=== PATIENT | female | born 1960 | race Caucasian/White ===

== ENCOUNTER 2020-01-25 19:05 | Emergency (ER) | payer BC ==
[~2020-01-25] VITALS: Ht 175.3 cm; Wt 104.3 kg
[2020-01-25 21:16] LABS: Urine Bacteria NONE SEEN /hpf (None Seen); Urine Blood Negative /uL (Negative); Urine Specific Gravity 1.009 (1.001-1.035); Urine WBC <1 /hpf (0 - 5)
[2020-01-25 21:32] LABS: Alcohol, Urine < 3.0 mg/dL (0-10); Amphetamine Screen, Urine NEGATIVE (NEGATIVE); Barbiturate Scree,Urine NEGATIVE (NEGATIVE); Benzodiazephine Screen, Urine POSITIVE (NEGATIVE); Cannabinoid Screen, Urine POSITIVE (NEGATIVE); Cocaine Screen, Urine NEGATIVE (NEGATIVE); Opiate Scree,Urine NEGATIVE (NEGATIVE); Phencyclidine Screen, Urine NEGATIVE (NEGATIVE)
[2020-01-25 22:10] LABS: Basophils # (auto) 0.1 10 ^3/uL (0-0.2); Basophils % (auto) 1.3 % (0.0-2.0); Eosinophils # (auto) 0.3 10 ^3/uL (0-0.8); Eosinophils % (auto) 2.8 % (0.0-7.0); Hematocrit 39.4 % (36.0-46.0); Lymphocytes # (auto) 3.4 10 ^3/uL (0.4-5.4); Lymphocytes % (auto) 30.5 % (10.0-50.0); Mean Corpuscular Hemoglobin 30.5 pg (28.0-32.0); Mean Corpuscular Hgb Conc. 32.9 g/dL (32.0-36.0); Mean Corpuscular Volume 92.6 fL (80.0-100.0); Monocytes % (auto) 9.1 % (0.0-12.0); Neutrophils # (auto) 6.2 10 ^3/uL (1.6-8.6); Neutrophils % (auto) 56.3 % (37.0-80.0); Platelet Count (auto) 284 10^3/uL (140-450); Red Blood Cells 4.25 10^6/uL (4.0-5.20); Red Cell Distribution Width 14.6 % (11.8-14.3)
[2020-01-25 22:27] LABS: Albumin 3.7 g/dL (3.4-5.0); Anion Gap 4 (5-15); Blood Urea Nitrogen 9 mg/dL (7-18); Calcium 8.8 mg/dL (8.5-10.1); Carbon Dioxide 29 mmol/L (21-32); Chloride 108 mmol/L (98-107); Glucose 98 mg/dL (74-106); Magnesium 2.6 mg/dL (1.6-2.6); Sodium 141 mmol/L (136-145)
[2020-01-25 22:33] LABS: Alanine Aminotransferase 17 U/L (13-56); Alkaline Phosphatase 82 U/L (45-117); Aspartate Aminotransferase 12 U/L (15-37); BUN/Creatinine Ratio 10.7; Bilirubin, Total 0.4 mg/dL (0.2-1.0); GFR African American 90 mL/min; GFR Non-African American 74 mL/min; Total Protein 7.2 g/dL (6.4-8.2)
[2020-01-25] MEDS ORDERED: ACETAMINOPHEN/CODEINE#3 (300/30mg) TAB PO ONE (23:00)
[2020-01-26 00:25] VITALS: BP 127/49
== END 2020-01-26 00:35 | disposition home or self-care (01) ==
LOC: ER 19:12
DX: M79.662 Pain in left lower leg (principal); M79.661 Pain in right lower leg; R60.0 Localized edema; R79.89 Other specified abnormal findings of blood chemistry; E78.5 Hyperlipidemia, unspecified; I10 Essential (primary) hypertension; F17.210 Nicotine dependence, cigarettes, uncomplicated
CPT/HCPCS: 36415; 71045; 80053; 80307; 81001; 83735; 83880; 84443; 84484; 85025; 93005; 93970

== ENCOUNTER 2020-02-23 06:27 | Inpatient (IN) | payer BC ==
[~2020-02-23] VITALS: Ht 175.3 cm; Wt 109.5 kg
[2020-02-23] MEDS ORDERED: KETOROLAC TROMETH 60MG/2ML VIAL IM ONE (07:45)
[2020-02-23 08:29] LABS: Basophils # (auto) 0.1 10 ^3/uL (0-0.2); Basophils % (auto) 1.2 % (0.0-2.0); Eosinophils # (auto) 0.3 10 ^3/uL (0-0.8); Eosinophils % (auto) 2.2 % (0.0-7.0); Hematocrit 39.7 % (36.0-46.0); Hemoglobin 13.1 g/dL (12.2-16.2); Lymphocytes # (auto) 2.3 10 ^3/uL (0.4-5.4); Mean Corpuscular Hemoglobin 30.6 pg (28.0-32.0); Mean Corpuscular Volume 92.9 fL (80.0-100.0); Monocytes # (auto) 0.9 10 ^3/uL (0-1.3); Monocytes % (auto) 7.7 % (0.0-12.0); Neutrophils # (auto) 7.9 10 ^3/uL (1.6-8.6); Neutrophils % (auto) 68.9 % (37.0-80.0); Platelet Count (auto) 301 10^3/uL (140-450); Red Blood Cells 4.28 10^6/uL (4.0-5.20); Red Cell Distribution Width 14.4 % (11.8-14.3); White Blood Cell 11.5 10^3/uL (4.4-10.8)
[2020-02-23 08:30] LABS: Urine WBC None Seen /hpf (0 - 5)
[2020-02-23 08:39] LABS: Urine Bacteria NONE SEEN /hpf (None Seen); Urine Blood Negative /uL (Negative)
[2020-02-23 09:08] LABS: Albumin 3.7 g/dL (3.4-5.0); Potassium 3.8 mmol/L (3.5-5.1)
[2020-02-23 09:12] LABS: BUN/Creatinine Ratio 13.3; Bilirubin, Total 0.3 mg/dL (0.2-1.0); Total Protein 7.4 g/dL (6.4-8.2)
[2020-02-23] MEDS ORDERED: HEPARIN SODIUM (PORCINE) 5000 UNITS/ML 1ML VIAL IV ONE (11:15)
[2020-02-23] MEDS ORDERED: NITROGLYCERIN 0.4 MG SL TAB SL PRN (12:30)
[2020-02-23] MEDS ORDERED: TEMAZEPAM 15 MG CAP PO PRN (13:00)
[2020-02-23] MEDS ORDERED: ACETAMINOPHEN 500 MG TAB PO PRN (13:00)
[2020-02-23 13:15] LABS: Urine Bacteria FEW /hpf (None Seen); Urine Blood Negative /uL (Negative); Urine Specific Gravity 1.003 (1.001-1.035); Urine WBC <1 /hpf (0 - 5)
[2020-02-23 13:30] VITALS: BP 135/68
[2020-02-23] MEDS ORDERED: SIMV10TA84 PO (13:50)
[2020-02-23] MEDS ORDERED: LAMO100T44 PO (13:50)
[2020-02-23] MEDS ORDERED: ESCI10TA53 PO (13:50)
[2020-02-23] MEDS ORDERED: ATEN50TA PO (13:50)
[2020-02-23] MEDS ORDERED: ARIP1TAB5 PO (13:50)
[2020-02-23] MEDS ORDERED: SERT100T PO (13:50)
[2020-02-23] MEDS ORDERED: LEVO25TA49 PO (13:50)
[2020-02-23] MEDS ORDERED: TRAZ100T3 PO (13:50)
[2020-02-23] MEDS ORDERED: AMLO10TA13 PO (13:50)
[2020-02-23] MEDS ORDERED: BUPR300T28 PO (13:50)
[2020-02-23] MEDS ORDERED: ALPR1TAB7 PO (13:50)
[2020-02-23] MEDS ORDERED: ACE3T PO (13:50)
[2020-02-23] MEDS ORDERED: FLUT1SPR5 (13:50)
[2020-02-23] MEDS ORDERED: FURO40TA4 PO (13:50)
[2020-02-23] MEDS: MORPHINE SULF INJ 2 MG/ML SYRINGE 1ML IV PRN ×4 (14:22→23:10)
[2020-02-23] MEDS: traMADol HCL 50 MG TAB PO PRN ×2 (16:05→22:05)
[2020-02-23] MEDS: ENOXAPARIN SOD 100 MG/1 ML SYRINGE SC SCH ×2 (16:42→21:03)
[2020-02-23 17:18] VITALS: BP 158/83
[2020-02-23] MEDS: LACTULOSE 20Gm/30ML SOLN PO PRN (21:03)
[2020-02-23 22:00] VITALS: BP 151/69
[2020-02-23] MEDS: PROMETHAZINE HCL 25 MG/ML 1ML IV PRN (23:09)
[2020-02-24] MEDS: traMADol HCL 50 MG TAB PO PRN ×2 (04:04→17:08)
[2020-02-24 05:00] VITALS: BP 130/65
[2020-02-24] MEDS: MORPHINE SULF INJ 2 MG/ML SYRINGE 1ML IV PRN ×3 (05:24→19:48)
[2020-02-24 05:49] LABS: Basophils # (auto) 0.1 10 ^3/uL (0-0.2); Basophils % (auto) 1.1 % (0.0-2.0); Eosinophils # (auto) 0.3 10 ^3/uL (0-0.8); Eosinophils % (auto) 3.3 % (0.0-7.0); Hematocrit 38.5 % (36.0-46.0); Hemoglobin 12.9 g/dL (12.2-16.2); Lymphocytes # (auto) 2.8 10 ^3/uL (0.4-5.4); Lymphocytes % (auto) 28.2 % (10.0-50.0); Mean Corpuscular Hemoglobin 30.9 pg (28.0-32.0); Mean Corpuscular Hgb Conc. 33.5 g/dL (32.0-36.0); Mean Corpuscular Volume 92.1 fL (80.0-100.0); Monocytes # (auto) 0.9 10 ^3/uL (0-1.3); Monocytes % (auto) 9.1 % (0.0-12.0); Neutrophils # (auto) 5.8 10 ^3/uL (1.6-8.6); Neutrophils % (auto) 58.3 % (37.0-80.0); Platelet Count (auto) 276 10^3/uL (140-450); Red Blood Cells 4.18 10^6/uL (4.0-5.20); Red Cell Distribution Width 14.7 % (11.8-14.3); White Blood Cell 9.9 10^3/uL (4.4-10.8)
[2020-02-24 08:34] VITALS: BP 142/73
[2020-02-24] MEDS: ENOXAPARIN SOD 100 MG/1 ML SYRINGE SC SCH ×2 (10:00→21:02)
[2020-02-24] MEDS ORDERED: lamoTRIgine 100 MG TAB PO ONE (10:30)
[2020-02-24] MEDS ORDERED: NICOTINE 21MG/24 HR TOPICAL PATCH TD ONE (10:30)
[2020-02-24] MEDS ORDERED: amLODIPine BESYLATE 5 MG TAB PO ONE (10:30)
[2020-02-24] MEDS ORDERED: SERTRALINE HCL 50 MG TAB PO ONE (10:30)
[2020-02-24] MEDS: PROMETHAZINE HCL 25 MG/ML 1ML IV PRN ×2 (10:52→19:47)
[2020-02-24 11:30] LABS: Cholesterol 181 mg/dL (< 200); HDL Cholesterol 40 mg/dL (40-59); LDL Cholesterol 100 mg/dL (< 100); Triglycerides 375 mg/dL (< 150)
[2020-02-24 12:52] VITALS: BP 144/76
[2020-02-24] MEDS ORDERED: ONDANSETRON HCL 4 MG/2 ML VIAL IV PRN (13:00)
[2020-02-24 16:19] VITALS: BP 145/53
[2020-02-24] MEDS: LACTULOSE 20Gm/30ML SOLN PO PRN (21:00)
[2020-02-24] MEDS: ATORVASTATIN 20 MG TAB PO SCH (21:01)
[2020-02-24] MEDS: ATENOLOL 50 MG TAB PO SCH (21:01)
[2020-02-24] MEDS: traZODone HCL 50 MG TAB PO SCH (21:02)
[2020-02-24 22:00] VITALS: BP 136/69
[2020-02-25] MEDS: PROMETHAZINE HCL 25 MG/ML 1ML IV PRN ×5 (01:01→23:57)
[2020-02-25] MEDS: MORPHINE SULF INJ 2 MG/ML SYRINGE 1ML IV PRN ×6 (01:02→23:57)
[2020-02-25 05:00] VITALS: BP 132/66
[2020-02-25 08:00] VITALS: BP 139/67
[2020-02-25] MEDS: ENOXAPARIN SOD 100 MG/1 ML SYRINGE SC SCH ×2 (10:00→21:02)
[2020-02-25] MEDS: NICOTINE 21MG/24 HR TOPICAL PATCH TD SCH (10:00)
[2020-02-25] MEDS: ATENOLOL 50 MG TAB PO SCH ×2 (10:01→21:01)
[2020-02-25] MEDS: lamoTRIgine 100 MG TAB PO SCH (10:01)
[2020-02-25] MEDS: SERTRALINE HCL 50 MG TAB PO SCH (10:02)
[2020-02-25] MEDS: amLODIPine BESYLATE 5 MG TAB PO SCH (10:02)
[2020-02-25 12:00] VITALS: BP 134/63
[2020-02-25] MEDS: traMADol HCL 50 MG TAB PO PRN (13:12)
[2020-02-25 16:54] VITALS: BP 144/66
[2020-02-25] MEDS: ATORVASTATIN 20 MG TAB PO SCH (21:01)
[2020-02-25] MEDS: traZODone HCL 50 MG TAB PO SCH (21:01)
[2020-02-25 22:20] VITALS: BP 105/64
[2020-02-26] MEDS: traMADol HCL 50 MG TAB PO PRN (02:55)
[2020-02-26] MEDS: PROMETHAZINE HCL 25 MG/ML 1ML IV PRN ×3 (04:19→22:46)
[2020-02-26] MEDS: MORPHINE SULF INJ 2 MG/ML SYRINGE 1ML IV PRN ×5 (04:19→22:36)
[2020-02-26 05:10] VITALS: BP 152/62
[2020-02-26 08:00] VITALS: BP 103/64
[2020-02-26] MEDS: SERTRALINE HCL 50 MG TAB PO SCH (08:55)
[2020-02-26] MEDS: lamoTRIgine 100 MG TAB PO SCH (08:55)
[2020-02-26] MEDS: amLODIPine BESYLATE 5 MG TAB PO SCH (08:56)
[2020-02-26] MEDS: NICOTINE 21MG/24 HR TOPICAL PATCH TD SCH (08:57)
[2020-02-26] MEDS: ENOXAPARIN SOD 100 MG/1 ML SYRINGE SC SCH (08:57)
[2020-02-26] MEDS: ATENOLOL 50 MG TAB PO SCH ×2 (08:57→22:35)
[2020-02-26 09:00] VITALS: BP 142/80
[2020-02-26] MEDS ORDERED: APIXABAN 5 MG TAB PO SCH ×2 (10:00)
[2020-02-26] MEDS ORDERED: APIXABAN 5 MG TAB PO ONE (11:00)
[2020-02-26 13:00] VITALS: BP 146/69
[2020-02-26 17:00] VITALS: BP 139/70
[2020-02-26 22:00] VITALS: BP 111/71
[2020-02-26] MEDS: ATORVASTATIN 20 MG TAB PO SCH (22:35)
[2020-02-26] MEDS: APIXABAN 5 MG TAB PO SCH (22:36)
[2020-02-26] MEDS: traZODone HCL 50 MG TAB PO SCH (22:36)
[2020-02-27] MEDS: MORPHINE SULF INJ 2 MG/ML SYRINGE 1ML IV PRN ×3 (02:45→06:30)
[2020-02-27] MEDS: PROMETHAZINE HCL 25 MG/ML 1ML IV PRN ×2 (02:45→06:31)
[2020-02-27 05:00] VITALS: BP 107/55
[2020-02-27 08:36] VITALS: BP 143/63
[2020-02-27] MEDS: traMADol HCL 50 MG TAB PO PRN ×2 (09:25→15:17)
[2020-02-27] MEDS: lamoTRIgine 100 MG TAB PO SCH (10:00)
[2020-02-27] MEDS: SERTRALINE HCL 50 MG TAB PO SCH (10:00)
[2020-02-27] MEDS: APIXABAN 5 MG TAB PO SCH (10:00)
[2020-02-27] MEDS: NICOTINE 21MG/24 HR TOPICAL PATCH TD SCH (10:00)
[2020-02-27] MEDS: ATENOLOL 50 MG TAB PO SCH (10:00)
[2020-02-27] MEDS: amLODIPine BESYLATE 5 MG TAB PO SCH (10:00)
[2020-02-27 15:00] VITALS: BP 143/63
== END 2020-02-27 15:36 | disposition home or self-care (01) | DRG 301 ==
LOC: ER 06:27 → TELE-WESTW 06:28
PROVIDERS: ADMIT Internal Medicine; ATTEND Family Medicine
DX: I82.432 Acute embolism and thrombosis of left popliteal vein (principal); E66.9 Obesity, unspecified; Z68.35 Body mass index [BMI] 35.0-35.9, adult; E78.5 Hyperlipidemia, unspecified; F17.210 Nicotine dependence, cigarettes, uncomplicated; F32.9 Major depressive disorder, single episode, unspecified; F41.9 Anxiety disorder, unspecified; I10 Essential (primary) hypertension; Z79.01 Long term (current) use of anticoagulants; Z82.3 Family history of stroke; Z82.49 Family history of ischemic heart disease and other diseases of the circulatory system; Z90.710 Acquired absence of both cervix and uterus
CPT/HCPCS: 36415; 71045; 73080; 80053; 80061; 81001; 81241; 83880; 85025; 85613; 85670; 85705; 85732; 93005; 93971; 96372; 96374; 96375; G0378; J1885; J2405